=== PATIENT | male | born 1970 | race Caucasian/White ===

== ENCOUNTER 2016-07-14 16:16 | Emergency (ER) | payer OTHER ==
[~2016-07-14] VITALS: Ht 180.3 cm; Wt 94.3 kg
--- NOTE | ~2016-07-14 | EKG ---
[place], [place] ELECTROCARDIOGRAM REPORT NAME: RODRICK ZUÑIGA UNIT #: [id number] ROOM: DOCTOR: EVER MALAVE MD BIRTHDATE: [birth year] DOS: 07/14/2016 TIME: 17:23:04. RATE AND RHYTHM: Normal sinus rhythm at 66 beats per minute. ID interval is 182 milliseconds, QRS duration is 86. Corrected QT interval 431 milliseconds. QRS axis is 10. IMPRESSION: Normal sinus rhythm, normal EKG. EVER MALAVE MD CM:EKGRPT:ELECTROCARDIOGRAM REPORT [id number] EVER MALAVE MD
[~2016-07-14 16:16] MED LIST: ASPIRIN81 M1 PO; ATIVAN1 MG PO; CIPRO500 MG PO; CYCLOBENZAPRINE10 MG PO; FLAGYL500 MG PO; HYDROCODONE BIT1 T11 PO; LIDEX 0.05% CRE15 GM T; MOTRIN IB200 M1 PO; MOTRIN800 MG PO; Motrin,Rufen800 MG PO; NAPROSYN500 MG PO; NEXIUM20 M1 PO; OMNICEF300 MG PO; Orphenadrine C100 MG PO; PROTONIX TR40 MG PO; TRAMADOL HCL50 MG PO; TYLENOL325 M2 PO; VANCO IV; ZOSYN 3.373.375 GM/5 IV
[2016-07-14 16:48] LABS: BASO # 0.1 10*3/uL (0.0-0.1); BASO % 0.6 % (0.0-1.0); EOS # 0.2 10*3/uL (0.0-0.4); EOS % 2.5 % (1.0-4.0); HEMOGLOBIN 15.8 g/dl (14.0-18.0); LYMPH # 2.5 10*3/uL (1.3-4.4); LYMPH % 28.6 % (27.0-41.0); MEAN CELL VOLUME 88.6 fl (80.0-94.0); MEAN CORPUSCULAR HGB 31.1 pg (27.0-31.0); MEAN CORPUSCULAR HGB CONC 35.1 g/dl (33.0-37.0); MEAN PLATELET VOLUME 10.3 fl (9.6-12.3); MONO # 0.5 10*3/uL (0.1-1.0); MONO % 5.8 % (3.0-9.0); NEUT # 5.5 10*3/uL (2.3-7.9); NEUT % 62.3 % (47.0-73.0); PLATELET COUNT AUTOMATED 231 10*3/uL (130-400); RED BLOOD COUNT 5.08 10*6/uL (4.50-5.90); RED CELL DISTRI WIDTH 11.9 % (0-14.5); WHITE BLOOD COUNT 8.8 10*3/uL (4.8-10.8)
[2016-07-14 17:04] LABS: ALBUMIN 4.1 gm/dl (3.1-4.5); ALKALINE PHOSPHATASE 80 U/L (45-117); BILIRUBIN, TOTAL 0.6 mg/dl (0.2-1.0); BUN 11 mg/dl (7-24); CARBON DIOXIDE 26 mmol/L (21-32); CHLORIDE 106 mmol/L (98-107); EST GLOM FILT AFRICAN AMERICAN > 60 ml/min; GLUCOSE 87 mg/dL (65-99); POTASSIUM 3.6 mmol/L (3.5-5.1); SGOT/AST 31 IU/L (3-35); SGPT/ALT 67 U/L (12-78); SODIUM 142 mmol/L (136-145); TOTAL PROTEIN 7.5 gm/dL (6.4-8.2)
[2016-07-14 17:05] LABS: TROPONIN I 0.021 ng/ml (<0.045)
[2016-07-14] MEDS ORDERED: NAPROSYN500 MG PO (17:19)
[2016-07-14] MEDS ORDERED: AVPAK AZITHROM250 M1 PO (18:06)
== END 2016-07-14 17:35 | disposition home or self-care (01) ==
LOC: ED 16:16
PROVIDERS: Nurse Practitioner Family
DX: M25.512 Pain in left shoulder (principal); J18.9 Pneumonia, unspecified organism; K21.9 Gastro-esophageal reflux disease without esophagitis; Z87.442 Personal history of urinary calculi

== ENCOUNTER → 2016-07-19 | Outpatient (CLI) | payer OTHER ==
[~2016-07-19] MED LIST changes: +AVPAK AZITHROM250 M1 PO
== END | disposition home or self-care (01) ==
LOC: RAD 16:34
DX: J18.9 Pneumonia, unspecified organism (principal); M54.5 Low back pain

== ENCOUNTER → 2016-08-09 | Outpatient (CLI) | payer OTHER | END | disposition home or self-care (01) | LOC: US 09:21 | DX: Z13.6 Encounter for screening for cardiovascular disorders (principal); Z82.49 Family history of ischemic heart disease and other diseases of the circulatory system ==

== ENCOUNTER 2016-08-20 23:55 | Inpatient (IN) | payer OTHER ==
[~2016-08-20] VITALS: Ht 180.3 cm; Wt 94.1 kg
--- NOTE | ~2016-08-20 | ST ---
[place], [place] EXERCISE STRESS TEST REPORT NAME: [facility]ICK [facility]IGA [id number] UNIT #: [id number] ROOM: 530 DOCTOR: SAMUEL CHILDS MD BIRTHDATE: [birth year] DOS: 08/21/2016 REFERRING PHYSICIAN: Dr. Apple. INDICATION: Central chest pain. The patient underwent standard Nate protocol treadmill stress testing. The patient's baseline EKG is normal with no ischemic changes. The patient's baseline heart rate is 65 beats per minute with a blood pressure of 118/82. The patient exercised for a total of minutes and 20 seconds reaching a peak heart rate of 147 with a blood pressure peak of 140/86. The patient's peak heart rate of 147 represents 85% maximum predicted. The patient denied any chest pain. The patient had no ischemic changes. The patient had rare PVCs. SUMMARY OF FINDINGS: Negative exercise treadmill stress test to high exercise capacity. The patient's James Treadmill score is 13.5 portending a very low risk prognosis. Negative exercise treadmill. SAMUEL CHILDS MD CM:STRESS:EXERCISE STRESS TEST REPORT 1526 [id number] JEAN CHILDS MD
[2016-08-21] VITALS (11 sets, daily range): BP systolic 90–140; BP diastolic 62–83
[2016-08-21 00:19] LABS: BASO % 0.5 % (0.0-1.0); EOS # 0.2 10*3/uL (0.0-0.4); EOS % 2.8 % (1.0-4.0); HEMATOCRIT 43.3 % (42.0-52.0); HEMOGLOBIN 15.4 g/dl (14.0-18.0); LYMPH # 2.4 10*3/uL (1.3-4.4); LYMPH % 31.4 % (27.0-41.0); MEAN CELL VOLUME 88.9 fl (80.0-94.0); MEAN CORPUSCULAR HGB 31.6 pg (27.0-31.0); MEAN CORPUSCULAR HGB CONC 35.6 g/dl (33.0-37.0); MEAN PLATELET VOLUME 10.5 fl (9.6-12.3); MONO # 0.6 10*3/uL (0.1-1.0); MONO % 7.4 % (3.0-9.0); NEUT # 4.5 10*3/uL (2.3-7.9); NEUT % 57.6 % (47.0-73.0); PLATELET COUNT AUTOMATED 228 10*3/uL (130-400); RED BLOOD COUNT 4.87 10*6/uL (4.50-5.90); WHITE BLOOD COUNT 7.8 10*3/uL (4.8-10.8)
[2016-08-21 00:28] LABS: PROTHROMBIN TIME 10.2 SECONDS (9.0-12.4)
[2016-08-21 00:37] LABS: ALBUMIN 3.6 gm/dl (3.1-4.5); ALKALINE PHOSPHATASE 91 U/L (45-117); BILIRUBIN, TOTAL 0.5 mg/dl (0.2-1.0); BUN 15 mg/dl (7-24); CARBON DIOXIDE 24 mmol/L (21-32); CHLORIDE 107 mmol/L (98-107); EST GLOM FILT AFRICAN AMERICAN > 60 ml/min; GLUCOSE 130 mg/dL (65-99); POTASSIUM 3.5 mmol/L (3.5-5.1); SGOT/AST 38 IU/L (3-35); SGPT/ALT 64 U/L (12-78); SODIUM 141 mmol/L (136-145)
[2016-08-21 00:38] LABS: TROPONIN I 0.041 ng/ml (<0.045)
[2016-08-21 06:06] LABS: BASO % 0.6 % (0.0-1.0); EOS # 0.3 10*3/uL (0.0-0.4); EOS % 3.8 % (1.0-4.0); HEMATOCRIT 41.4 % (42.0-52.0); HEMOGLOBIN 14.2 g/dl (14.0-18.0); LYMPH # 2.7 10*3/uL (1.3-4.4); LYMPH % 37.6 % (27.0-41.0); MEAN CELL VOLUME 90.6 fl (80.0-94.0); MEAN CORPUSCULAR HGB 31.1 pg (27.0-31.0); MEAN CORPUSCULAR HGB CONC 34.3 g/dl (33.0-37.0); MEAN PLATELET VOLUME 10.8 fl (9.6-12.3); MONO # 0.4 10*3/uL (0.1-1.0); NEUT # 3.7 10*3/uL (2.3-7.9); NEUT % 51.7 % (47.0-73.0); PLATELET COUNT AUTOMATED 200 10*3/uL (130-400); RED BLOOD COUNT 4.57 10*6/uL (4.50-5.90); RED CELL DISTRI WIDTH 12.1 % (0-14.5); WHITE BLOOD COUNT 7.2 10*3/uL (4.8-10.8)
[2016-08-21 06:28] LABS: ALBUMIN 3.2 gm/dl (3.1-4.5); BILIRUBIN, TOTAL 0.2 mg/dl (0.2-1.0); BUN 13 mg/dl (7-24); CARBON DIOXIDE 25 mmol/L (21-32); CHLORIDE 109 mmol/L (98-107); CHOLESTEROL 181 mg/dL (<200); EST GLOM FILT AFRICAN AMERICAN > 60 ml/min; GLUCOSE 97 mg/dL (65-99); PHOSPHOROUS 3.2 mg/dL (2.5-4.9); SGOT/AST 32 IU/L (3-35); SGPT/ALT 56 U/L (12-78); SODIUM 144 mmol/L (136-145); TOTAL PROTEIN 6.3 gm/dL (6.4-8.2); TRIGLYCERIDES 210 mg/dl (<150); VLDL CHOLESTEROL 42 mg/dL (6-40)
[2016-08-21 06:35] LABS: ALKALINE PHOSPHATASE 76 U/L (45-117); FREE T4 1.03 ng/dl (0.76-1.46); HDL CHOLESTEROL 45 mg/dl (40-60); LDL CHOLESTEROL 94 mg/dL (9-159)
[2016-08-21 07:55] LABS: HEMOGLOBIN A1c 5.8 % (4.8-5.6)
[2016-08-21 08:21] LABS: VITAMIN D, 25-HYDROXY 24.6 ng/mL (30-100)
[2016-08-21 08:22] LABS: FOLIC ACID 9.2 ng/mL (>5.38)
== END 2016-08-21 15:57 | disposition home or self-care (01) | DRG 313 ==
LOC: ED 23:55 → EDHOLD 08-21 01:27 → 5E 08-21 01:43
PROVIDERS: Emergency Medicine Emergency Medical Services; Internal Medicine Hospice and Palliative Medicine
PROC: 4A02XM4 Measurement of Cardiac Total Activity, External Approach (ICD-10-PCS; principal; 2016-08-21)
DX: R07.9 Chest pain, unspecified (principal); E55.9 Vitamin D deficiency, unspecified; K21.9 Gastro-esophageal reflux disease without esophagitis; E78.5 Hyperlipidemia, unspecified; Z82.49 Family history of ischemic heart disease and other diseases of the circulatory system; Z87.891 Personal history of nicotine dependence

== ENCOUNTER → 2016-10-27 | Outpatient (CLI) | payer OTHER | END | disposition home or self-care (01) | LOC: RAD 16:23 | DX: M54.2 Cervicalgia (principal) ==

== ENCOUNTER → 2017-01-19 | Outpatient (CLI) | payer OTHER ==
[2017-01-19 12:05] LABS: HEMATOCRIT 47.9 % (42.0-52.0); HEMOGLOBIN 16.8 g/dl (14.0-18.0); MEAN CELL VOLUME 90.5 fl (80.0-94.0); MEAN CORPUSCULAR HGB 31.8 pg (27.0-31.0); MEAN CORPUSCULAR HGB CONC 35.1 g/dl (33.0-37.0); MEAN PLATELET VOLUME 10.7 fl (9.6-12.3); RED BLOOD COUNT 5.29 10*6/uL (4.50-5.90); RED CELL DISTRI WIDTH 11.8 % (0-14.5); WHITE BLOOD COUNT 6.5 10*3/uL (4.8-10.8)
[2017-01-19 12:30] LABS: ALBUMIN 3.9 gm/dl (3.1-4.5); ALKALINE PHOSPHATASE 94 U/L (45-117); BUN 10 mg/dl (7-24); CHLORIDE 107 mmol/L (98-107); CHOLESTEROL 220 mg/dL (<200); CREATININE 1.23 mg/dL (0.70-1.30); HDL CHOLESTEROL 55 mg/dl (40-60); LDL CHOLESTEROL 122 mg/dL (9-159); POTASSIUM 4.1 mmol/L (3.5-5.1); SGOT/AST 45 IU/L (3-35); SGPT/ALT 88 U/L (12-78); SODIUM 142 mmol/L (136-145); TOTAL PROTEIN 7.7 gm/dL (6.4-8.2); TRIGLYCERIDES 216 mg/dl (<150); VLDL CHOLESTEROL 43 mg/dL (6-40)
== END ==
LOC: LAB 11:12
PROVIDERS: Family Medicine
DX: Z13.220 Encounter for screening for lipoid disorders (principal); E78.00 Pure hypercholesterolemia, unspecified; M25.519 Pain in unspecified shoulder; R53.83 Other fatigue

== ENCOUNTER → 2017-08-27 | Outpatient (CLI) | payer OTHER ==
[2017-08-27 09:59] LABS: HEMATOCRIT 49.4 % (42.0-52.0); HEMOGLOBIN 16.9 g/dl (14.0-18.0); MEAN CELL VOLUME 91.5 fl (80.0-94.0); MEAN CORPUSCULAR HGB 31.3 pg (27.0-31.0); MEAN CORPUSCULAR HGB CONC 34.2 g/dl (33.0-37.0); MEAN PLATELET VOLUME 10.5 fl (9.6-12.3); RED BLOOD COUNT 5.4 10*6/uL (4.50-5.90); RED CELL DISTRI WIDTH 12.2 % (0-14.5); WHITE BLOOD COUNT 8.2 10*3/uL (4.8-10.8)
[2017-08-27 10:28] LABS: ALKALINE PHOSPHATASE 102 U/L (45-117); BUN 12 mg/dl (7-24); CHLORIDE 106 mmol/L (98-107); CHOLESTEROL 229 mg/dL (<200); HDL CHOLESTEROL 50 mg/dl (40-60); LDL CHOLESTEROL 150 mg/dL (9-159); POTASSIUM 3.8 mmol/L (3.5-5.1); SGOT/AST 39 IU/L (3-35); SGPT/ALT 91 U/L (12-78); SODIUM 142 mmol/L (136-145); TOTAL PROTEIN 8.1 gm/dL (6.4-8.2); TRIGLYCERIDES 144 mg/dl (<150); VLDL CHOLESTEROL 29 mg/dL (6-40)
== END | disposition home or self-care (01) ==
LOC: LAB 09:34
PROVIDERS: Family Medicine
DX: M75.92 Shoulder lesion, unspecified, left shoulder (principal); E78.00 Pure hypercholesterolemia, unspecified; J40 Bronchitis, not specified as acute or chronic; R79.89 Other specified abnormal findings of blood chemistry

== ENCOUNTER → 2017-12-28 | Outpatient (CLI) | payer OTHER | END | disposition home or self-care (01) | LOC: RAD 11:11 | DX: R10.9 Unspecified abdominal pain (principal); R05 Cough; R07.9 Chest pain, unspecified ==

== ENCOUNTER → 2021-12-23 | Outpatient (CLI) | payer OTHER ==
[2021-12-23 07:44] LABS: HEMATOCRIT 46.6 % (42.0-52.0); MEAN CELL VOLUME 90.5 fl (80.0-94.0); MEAN CORPUSCULAR HGB 32.2 pg (27.0-31.0); MEAN CORPUSCULAR HGB CONC 35.6 g/dl (33.0-37.0); MEAN PLATELET VOLUME 11.4 fl (9.6-12.3); RED BLOOD COUNT 5.15 10*6/uL (4.50-5.90); RED CELL DISTRI WIDTH 11.5 % (0-14.5)
[2021-12-23 08:00] LABS: ALKALINE PHOSPHATASE 148 U/L (45-117); BUN 14 mg/dl (7-24); CHLORIDE 105 mmol/L (98-107); CHOLESTEROL 251 mg/dL (<200); CREATININE 1.15 mg/dL (0.70-1.30); SGOT/AST 32 IU/L (3-35); SGPT/ALT 65 U/L (12-78); SODIUM 138 mmol/L (136-145); TOTAL PROTEIN 8.3 gm/dL (6.4-8.2); TRIGLYCERIDES 697 mg/dl (<150)
[2021-12-23 10:42] LABS: VITAMIN D, 25-HYDROXY 10.4 ng/mL (30-100)
== END ==
LOC: LAB 07:25
PROVIDERS: ATTEND Family Medicine
DX: Z00.00 Encounter for general adult medical examination without abnormal findings (principal); Z12.5 Encounter for screening for malignant neoplasm of prostate; E78.00 Pure hypercholesterolemia, unspecified; E55.9 Vitamin D deficiency, unspecified; R53.83 Other fatigue

== ENCOUNTER → 2022-04-28 | Outpatient (CLI) | payer BC ==
[2022-04-28 09:27] LABS: HEMATOCRIT 47.1 % (42.0-52.0); MEAN CELL VOLUME 92.7 fl (80.0-94.0); MEAN CORPUSCULAR HGB 30.7 pg (27.0-31.0); MEAN CORPUSCULAR HGB CONC 33.1 g/dl (33.0-37.0); MEAN PLATELET VOLUME 10.6 fl (9.6-12.3); RED BLOOD COUNT 5.08 10*6/uL (4.50-5.90); RED CELL DISTRI WIDTH 12.1 % (0-14.5); WHITE BLOOD COUNT 8.9 10*3/uL (4.8-10.8)
[2022-04-28 09:44] LABS: ALKALINE PHOSPHATASE 67 U/L (46-116); BUN 13 mg/dl (9-23); CHLORIDE 105 mmol/L (98-107); CHOLESTEROL 186 mg/dL (<200); CPK 97 U/L (34-171); LDL CHOLESTEROL 113 mg/dL (9-159); POTASSIUM 4.4 mmol/L (3.4-5.1); SGPT/ALT 36 U/L (10-49); TOTAL PROTEIN 7.6 gm/dL (6.0-8.0); TRIGLYCERIDES 117 mg/dl (<150)
== END | disposition home or self-care (01) ==
LOC: LAB 08:55
PROVIDERS: ATTEND Family Medicine
DX: E11.9 Type 2 diabetes mellitus without complications (principal); E78.00 Pure hypercholesterolemia, unspecified; I10 Essential (primary) hypertension

== ENCOUNTER → 2022-08-19 | Outpatient (CLI) | payer BC ==
[2022-08-19 10:28] LABS: HEMATOCRIT 47.9 % (42.0-52.0); MEAN CELL VOLUME 91.8 fl (80.0-94.0); MEAN CORPUSCULAR HGB 31.6 pg (27.0-31.0); MEAN CORPUSCULAR HGB CONC 34.4 g/dl (33.0-37.0); MEAN PLATELET VOLUME 9.9 fl (9.6-12.3); RED BLOOD COUNT 5.22 10*6/uL (4.50-5.90); WHITE BLOOD COUNT 6.9 10*3/uL (4.8-10.8)
[2022-08-19 11:14] LABS: ALKALINE PHOSPHATASE 67 U/L (46-116); BUN 12 mg/dl (9-23); CHLORIDE 107 mmol/L (98-107); CHOLESTEROL 177 mg/dL (<200); LDL CHOLESTEROL 108 mg/dL (9-159); POTASSIUM 4.1 mmol/L (3.4-5.1); SGPT/ALT 32 U/L (10-49); TOTAL PROTEIN 7.7 gm/dL (6.0-8.0); TRIGLYCERIDES 91 mg/dl (<150)
== END | disposition home or self-care (01) ==
LOC: LAB 10:10
PROVIDERS: ATTEND Family Medicine
DX: I10 Essential (primary) hypertension (principal); E78.00 Pure hypercholesterolemia, unspecified; E11.9 Type 2 diabetes mellitus without complications

== ENCOUNTER → 2023-09-08 | Outpatient (CLI) | payer BC ==
[2023-09-08 10:48] LABS: HEMATOCRIT 47.1 % (42.0-52.0); MEAN CELL VOLUME 91.1 fl (80.0-94.0); MEAN CORPUSCULAR HGB 31.7 pg (27.0-31.0); MEAN CORPUSCULAR HGB CONC 34.8 g/dl (33.0-37.0); MEAN PLATELET VOLUME 10.1 fl (9.6-12.3); RED BLOOD COUNT 5.17 10*6/uL (4.50-5.90); WHITE BLOOD COUNT 7.6 10*3/uL (4.8-10.8)
[2023-09-08 11:04] LABS: ALKALINE PHOSPHATASE 71 U/L (46-116); BUN 11 mg/dl (9-23); CHLORIDE 106 mmol/L (98-107); CHOLESTEROL 211 mg/dL (<200); LDL CHOLESTEROL 130 mg/dL (9-159); SGPT/ALT 53 U/L (5-49); TOTAL PROTEIN 7.5 gm/dL (6.0-8.0); TRIGLYCERIDES 150 mg/dl (<150)
== END | disposition home or self-care (01) ==
LOC: LAB 10:28
PROVIDERS: ATTEND Family Medicine
DX: Z12.5 Encounter for screening for malignant neoplasm of prostate (principal); I10 Essential (primary) hypertension; E11.9 Type 2 diabetes mellitus without complications; E78.00 Pure hypercholesterolemia, unspecified

== ENCOUNTER → 2023-10-03 | Outpatient (CLI) | payer BC | END | disposition home or self-care (01) | LOC: LAB 12:44 | PROVIDERS: ATTEND Family Medicine | DX: E11.9 Type 2 diabetes mellitus without complications (principal) ==

== ENCOUNTER → 2024-03-28 | Outpatient (CLI) | payer BC ==
[2024-03-28 12:28] LABS: HEMATOCRIT 47.5 % (42.0-52.0); MEAN CELL VOLUME 90.5 fl (80.0-94.0); MEAN CORPUSCULAR HGB 31.4 pg (27.0-31.0); MEAN CORPUSCULAR HGB CONC 34.7 g/dl (33.0-37.0); MEAN PLATELET VOLUME 10.3 fl (9.6-12.3); RED BLOOD COUNT 5.25 10*6/uL (4.50-5.90)
[2024-03-28 12:50] LABS: ALKALINE PHOSPHATASE 68 U/L (46-116); BUN 15 mg/dl (9-23); CHLORIDE 104 mmol/L (98-107); CHOLESTEROL 217 mg/dL (<200); CPK 96 U/L (34-171); LDL CHOLESTEROL 128 mg/dL (9-159); SGPT/ALT 73 U/L (5-49); TOTAL PROTEIN 7.6 gm/dL (6.0-8.0); TRIGLYCERIDES 184 mg/dl (<150)
[2024-03-28 13:22] LABS: VITAMIN D, 25-HYDROXY 22.6 ng/mL (30-100)
== END | disposition home or self-care (01) ==
LOC: LAB 12:09
PROVIDERS: ATTEND Family Medicine
DX: M25.512 Pain in left shoulder (principal); I10 Essential (primary) hypertension; E11.9 Type 2 diabetes mellitus without complications; E55.9 Vitamin D deficiency, unspecified; R53.83 Other fatigue; E78.00 Pure hypercholesterolemia, unspecified

== ENCOUNTER → 2025-01-03 | Outpatient (CLI) | payer BC ==
[2025-01-03 09:34] LABS: MEAN CELL VOLUME 90.8 fl (80.0-94.0); MEAN CORPUSCULAR HGB 31.1 pg (27.0-31.0); MEAN PLATELET VOLUME 10.1 fl (9.6-12.3); NUCLEATED RED BLOOD CELL 0.0 % (0.0-0.0); NUCLEATED RED BLOOD CELL 0.0 10*3/uL (0.0-0.0); PLATELET COUNT AUTOMATED 231.0 10*3/uL (130-400); RED CELL DISTRI WIDTH 12.1 % (0-14.5)
[2025-01-03 09:51] LABS: BUN 15 mg/dl (9-23); CPK 122 U/L (34-171); LDL CHOLESTEROL 123 mg/dL (9-159); SGPT/ALT 72 U/L (5-49)
== END | disposition home or self-care (01) ==
LOC: LAB 08:48
PROVIDERS: ATTEND Family Medicine
DX: M47.816 Spondylosis without myelopathy or radiculopathy, lumbar region (principal); M54.32 Sciatica, left side; I10 Essential (primary) hypertension; E11.9 Type 2 diabetes mellitus without complications; E78.00 Pure hypercholesterolemia, unspecified; Z12.5 Encounter for screening for malignant neoplasm of prostate; M54.50 Low back pain, unspecified